=== PATIENT | female | born 1955 | race Caucasian/White ===

== ENCOUNTER 2017-02-03 05:55 | Emergency (ER) | payer OTHER ==
[~2017-02-03] VITALS: Ht 177.8 cm; Wt 77.3 kg
[2017-02-03 06:02] VITALS: BP 169/99; PULSE 75; RESP 16; O2SAT 98
[2017-02-03] MEDS ORDERED: IMI25 PO (06:07)
[2017-02-03] MEDS ORDERED: HYDR12.55 PO (06:07)
[2017-02-03] MEDS ORDERED: METO25TA6 PO (06:07)
[2017-02-03] MEDS ORDERED: LISI2.5T PO (06:07)
--- NOTE | 2017-02-03 06:14 | ED.REPORT ---
HPI-Trauma Minor / Fall Date of Service Feb 03, 2017 ED Provider: Manny Valdovinos MD Patient is a 61 year old female with a hx of HTN who presents to the ED complaining of L hand and R foot pain s/p falling about 3 foot from an above ground pool ladder onto gravel yesterday evening. Associated symptoms include nausea, headache, and vomiting x1 onset this morning. She is not able to weight bear on her R foot. Per friend, she hit her head. She denies LOC, confusion, back pain, or any other symptoms. She has been taking Ibuprofen for her pain but vomited x1 after taking it on an empty stomach. She is not on blood thinners. Nursing Notes Stated Complaint: RT ANKLE, LEFT HAND PAIN, PT FELL Chief Complaint: Extremity Trauma Nursing Notes Reviewed: Yes Allergies: Coded Allergies: No Known Allergies (Unverified , 02/03/17) Scheduled Hydrochlorothiazide (Hydrochlorothiazide) 12.5 Mg Tablet 12.5 MG PO DAILY Lisinopril (Lisinopril) 2.5 Mg Tablet 2.5 MG PO DAILY Metoprolol Tartrate (Metoprolol Tartrate) 25 Mg Tablet 25 MG PO DAILY Scheduled PRN Hydrocodone-Acetaminophen 5-325 mg (Hydrocodone-Acetaminophen 5-325 mg) 1 Each Tablet 1 TABLET PO Q4H PRN PRN For Pain Sumatriptan (Imitrex) 25 Mg Tablet 25 MG PO DAILY PRN PRN For Headache General Time Seen by MD: 06:10 Chief Complaint Fall Hx Obtained From: Patient, Other family... Arrived By: Walk-in Onset Occurred: Yesterday Caused by: Fall from height... Context: Immunizations Unknown Past Medical History Past Medical History Reports: Hypertension Past Surgical History None reported Smoking History Unknown if Ever Smoker Social History Alcohol Use: 1-3 per day Other Social History: Good social support Ambulatory Status Independent Review of Systems Musculoskeletal: Reports: Extremity pain, Denies: Back pain Neurologic: Reports: Headache, Problem walking, Denies: Change LOC, Confusion Complete sys rev & neg: except as marked. GI: Reports: Nausea, Vomiting Physical Exam Initial Vital Signs Vital Signs (First) Date Time Temp Pulse Resp B/P Pulse Ox O2 Delivery O2 Flow Rate FiO2 02/03/17 06:02 36.5 75 16 169/99 98 Room Air Initial VS: Reviewed Skin: Warm, Dry Neurologic: Alert, Oriented, Nonfocal Psychiatric: Mood/affect normal, Behavior normal, Normal thought content General/Constitutional: Awake, Alert, No acute distress Neck: Atraumatic, Supple, Full range of motion Head / Eyes: Atraumatic, Normocephalic, EOMI Respiratory / Chest: No respiratory distress Back: Full range of motion Wrist / Hand: Inspection NL, No deformity, Neurologic intact, Vascular intact L hand: Ulnar aspect non-tender to palpation. No bony tenderness. Full flexion and extension. Ankle / Foot: Atraumatic, Inspection NL, No deformity, Neurologic intact, Vascular intact R foot: No bony tenderness, No tenderness to palpation over lateral aspect. Pulses intact. No ecchymosis. FROM. Interpretation & Diagnostics Lab Results Interpretation Lab Results Interpretation: CT R FOOT: IMPRESSION: 1. Mildly displaced fractures of the proximal 2nd and 3rd metatarsals at the Lisfranc joints. 2. Minimally displaced fracture of the lateral aspect of the 1st cuneiform. Dictated by: Gabrielle Boss M.D. on 02/03/2017 at 8:29 Approved by: Gabrielle Boss M.D. on 02/03/2017 at 8:34 X-Ray Interpretation Xray Interpretation: 2nd metatarsal fx Study Performed: 3 view X-Ray Ordered: Foot right Interpretation / Wet Read by: Interpret - ED physician Xray Interpretation: 4th metacarpal fx X-Ray Ordered: Hand left Interpretation / Wet Read by: Interpret - ED physician CT Head Interpretation CONCLUSION: No acute intracranial hemorrhage or calvarial fractures. Gino Ledezma M.D. Study: Head CT no contrast Interpretation / Wet Read by: Interpret - Radiologist Procedures Splint Application - Fx Mgt Time: 09:20 Procedure Performed by: Director Medicaid Type of Immobilization: Ulnar gutter (L) Post-Procedure / Complications: Cap refill normal, Post splint vascular nl, Post splint neuro nl, Condition improved, Tolerated procedure well, Patient stable Splint Post-Application Eval Extremity Condition: Cap refill < 2 sec, Distal sensation intact, Distal motor Intact, No compartment syndrome Re-Eval/Medical Decision Re-Evaluation/Progress #1: Time of Eval: 07:41 Re-Evaluation/Progress Note: Discussed imaging results and plan for discharge. Pt reports her house is not suitable for a wheelchair. Discussed plan for splints and scooter. Patient understands and agrees with plan. All questions addressed at this time. Re-Evaluation/Progress #2: Time of Eval: 09:23 Re-Evaluation/Progress Note: Discussed CT foot results and plan for follow up. Discussed plan for discharge. Patient understands and agrees with plan. All questions addressed at this time. Consultation : Referral / Consult Name: Wolfgang Senior DPM Call Returned at: 09:13 Note: Discussed imaging with podiatry. Suggests tall cast boot with padding under the arch. Minimize weight bearing. Counseled Regarding: Diagnosis, Lab results, Need for follow-up, When/why to return to ED Discharge & Departure Impression: Primary Impression: Metatarsal bone fracture Encounter type: initial encounter Metatarsal bone: unspecified metatarsal Fracture type: closed Physeal involvement: unspecified Laterality: right Qualified Code: S92.301A - Fracture of unspecified metatarsal bone(s), right foot, initial encounter for closed fracture Additional Impression: Fx metacarpal Encounter type: initial encounter Metacarpal bone: fourth Fracture type: closed Metacarpal location: unspecified portion of metacarpal Fracture alignment: nondisplaced Laterality: left Qualified Code: S62.305A - Unspecified fracture of fourth metacarpal bone, left hand, initial encounter for closed fracture Disposition: Home Discharge Condition All VS Reviewed: Yes Condition: Improved Patient Instructions: Splint Care (ED) Additional Instructions: Emergency department evaluation today included review, examination, imaging of the brain by CT, left hand by plain film and right foot by plain film and CT. We have identified multiple bone fractures in the right foot requiring immobilization with limited weightbearing mainly on the heel while in the splint only. The left hand has a fracture and is splinted also. We are unable to put you on crutches due to the left hand fracture. To repeat to not weight- bear on your right foot without being in the splint. May use hydrocodone/APAP 1 every 4 hours as needed for pain. May also use ibuprofen and Tylenol, keeping in mind that each hydrocodone/APAP as 325 mg of Tylenol in it. The aware that hydrocodone may cause constipation. Iver such as prune juice or Metamucil and/or milk of magnesia may be helpful if this is occurring. Total daily dose of Tylenol should be less than 3000 mg. Call to be seen in podiatry clinic in approximately 10 days. Images were reviewed with . Call be seen in orthopedics as soon as possible. Return to emergency department for severe pain in leg or foot numbness weakness or severe pain and hand, headache with vomiting. Referrals: Maulik Longoria MD (PCP) Wolfgang Senior DPM Picco,Blaine Pineda Attestation Portions of this note were transcribed by Leighton Vallejo. I, Dr. Valdovinos personally performed the history, physical exam and medical decision-making; I reviewed and confirmed the accuracy of the information in the transcribed note. Signed by: Leighton Vallejo 02/03/2017, 0927 copies to: Maulik Longoria MD, Donald L MD Feb 03, 2017 06:14 LEIGHTON VALLEJO Feb 03, 2017 06:22
[2017-02-03] MEDS ORDERED: HYDROcodone-APAP 5-325 mg Tablet PO ONE (07:45)
--- NOTE | 2017-02-03 08:31 | DRSVH ---
PROCEDURE: X-RAY RIGHT FOOT COMPLETE, MINIMUM THREE VIEWS ([id number]) INDICATIONS: fall TECHNIQUE: 3 views of the foot were acquired. COMPARISON: None. FINDINGS: Bones: There is a mildly displaced fracture at the base of the 2nd metatarsal medially. Soft tissues: No tibiotalar joint effusion. Achilles tendon appears normal. IMPRESSION: 1. Mildly displaced fracture at the base of the 2nd metatarsal. Given the location, findings are abrams spicious for Lisfranc ligament injury. Dictated by: Ko Trevizo M.D. on 02/03/2017 at 8:27 Approved by: Ko Trevizo M.D. on 02/03/2017 at 8:29
--- NOTE | 2017-02-03 08:36 | DRSVH ---
PROCEDURE: X-RAY LEFT HAND, MINIMUM THREE VIEWS ([id number]) INDICATIONS: hand pain TECHNIQUE: 3 views of the left hand acquired. COMPARISON: None. FINDINGS: Bones: There is a mildly displaced fracture in the 4th metacarpal. Carpal bones are normally aligne d. No suspicious bony lesions. Soft tissues: No suspicious soft tissue calcifications. IMPRESSION: 1. Mildly displaced 4th metacarpal fracture. Dictated by: Ko Trevizo M.D. on 02/03/2017 at 8:31 Approved by: Ko Trevizo M.D. on 02/03/2017 at 8:34
--- NOTE | 2017-02-03 08:36 | DRSVH ---
PROCEDURE: CT FOOT RIGHT WITHOUT CONTRAST ([id number]) INDICATIONS: r foot pain, fx seen in metatarsals TECHNIQUE: Noncontrast 1-1.5 mm axial sections acquired from above the tibiotalar joint to the bottom of the akosua caneus, with coronal and sagittal reformats. COMPARISON: [facility], CR, XR FOOT 3VW RT, 02/03/2017, 6:10. FINDINGS: Image quality: Excellent. Bones: There is a mildly displaced fracture of the lateral aspect of the 1st cuneiform, with a result ing 5 mm diameter mildly displaced fracture fragment at its lateral aspect. There is a mildly displac ed fracture of the proximal 2nd metatarsal at its medial aspect with articular surface extension to t he 2nd tarsometatarsal joint. There is a mildly displaced fracture of the medial proximal aspect of t he 3rd metatarsal, with articular surface extension to the 3rd tarsometatarsal joint. Soft tissues: Moderate diffuse subcutaneous soft tissue injury is present dorsally. IMPRESSION: 1. Mildly displaced fractures of the proximal 2nd and 3rd metatarsals at the Lisfranc joints. 2. Minimally displaced fracture of the lateral aspect of the 1st cuneiform. Dictated by: Gabrielle Boss M.D. on 02/03/2017 at 8:29 Approved by: Gabrielle Boss M.D. on 02/03/2017 at 8:34
[2017-02-03] MEDS ORDERED: HYDR-4003 PO (09:35)
--- NOTE | 2017-02-03 09:43 | DRSVH ---
PROCEDURE: CT BRAIN WITHOUT CONTRAST ([id number]) INDICATIONS: fall, head injury TECHNIQUE: Noncontrast 4.5 mm thick angled axial sections acquired from the foramen magnum to the vertex, with c oronal reformats. COMPARISON: CT brain 04/19/2014, 04/28/2008 FINDINGS: Preliminary report by shift nurse manager radiology Image quality: Excellent. CSF spaces: Basal cisterns are patent. No extra-axial fluid collections. Ventricles are normal in size and shape. Brain: No midline shift. No intracranial masses or hemorrhage. Randall-white matter interface is norm al. Skull and face: Calvarium and visualized facial bones are intact, without suspicious lesions. Sinuses: Visualized sinuses and mastoids are clear. IMPRESSION: 1. No acute intracranial abnormality. Findings are concordant with the preliminary report. Dictated by: Chas Whitaker M.D. on 02/03/2017 at 9:37 Approved by: Chas Whitaker M.D. on 02/03/2017 at 9:39
[2017-02-03 11:13] VITALS: BP 138/92; PULSE 63; RESP 14; O2SAT 98
== END 2017-02-03 11:15 | disposition home or self-care (01) ==
LOC: SED 05:55
DX: S92.321A Displaced fracture of second metatarsal bone, right foot, initial encounter for closed fracture (principal); S92.331A Displaced fracture of third metatarsal bone, right foot, initial encounter for closed fracture; S92.221A Displaced fracture of lateral cuneiform of right foot, initial encounter for closed fracture; S62.305A Unspecified fracture of fourth metacarpal bone, left hand, initial encounter for closed fracture; W11.XXXA Fall on and from ladder, initial encounter; Y93.9 Activity, unspecified; Y92.89 Other specified places as the place of occurrence of the external cause; Y99.9 Unspecified external cause status; I10 Essential (primary) hypertension